=== PATIENT | male | born 1960 | race Caucasian/White ===

== ENCOUNTER 2018-11-29 08:16 | Inpatient (IN) | payer OTHER ==
[~2018-11-29] VITALS: Ht 160 cm; Wt 68.9 kg
[2018-11-29 08:50] VITALS: BP 131/99
--- NOTE | 2018-11-29 09:08 | NUR ---
pt ambulated to er bed 11
--- NOTE | 2018-11-29 09:28 | NUR ---
58 YO M BIB SELF W/ C/O BLOODY STOOL X 3 DAYS, WITH HEMATEMESIS X 2 EPISODES TODAY. PT DENIES ANY PAIN, BUT STATES THAT HE HAS INTERMITTENT PERIODS OF FEELING FEVERISH AND DIZZY. DENIES AT THIS TIME. AFEBRILE. STATES HE HAS HAD A PRODUCTIVE COUGH X 2 DAYS W/ CONGESTION. ABD SOFT, NON-TENDER. REPORTS HE HAS BEEN ABLE TO KEEP WATER DOWN. PT AAOX4, GCS 15.
--- NOTE | 2018-11-29 09:38 | NUR ---
PT REPORTS HX OF HEP C
[2018-11-29] MEDS ORDERED: MULTIVITAMIN-12 10 ML, THIAMINE 100 MG, MAGNESIUM SULFATE 50% 2,000 MG, FOLIC ACID 5 MG... IV ONE ×5 (10:21)
[2018-11-29] MEDS ORDERED: NACL 0.9% 1,000 ML IV SCH (10:21)
[2018-11-29] MEDS ORDERED: FAMOTIDINE 20 MG/2 ML VIAL IVP ONE (10:25)
[2018-11-29] MEDS ORDERED: PANTOPRAZOLE 40 MG INJ VIAL IVP ONE (10:25)
[2018-11-29] MEDS ORDERED: PROMETHAZINE 25 MG/ML VIAL IM ONE (10:25)
--- NOTE | 2018-11-29 11:15 | NUR ---
PT TAKEN TO CT VIA MYLENE
[2018-11-29 11:16] LABS: BASOPHILS % (AUTO) 0.5 % (0.0-2.0); EOSINOPHILS % (AUTO) 0.3 % (0.0-4.0); HEMATOCRIT 25.5 % (36-52); HEMOGLOBIN 8.6 g/dL (12.0-18.0); LYMPHOCYTES # (AUTO) 1.2 K/uL (2.0-11.5); LYMPHOCYTES % (AUTO) 13.7 % (20.5-51.1); MEAN CORPUSCULAR HEMOGLOBIN 35 pg (27-31); MEAN CORPUSCULAR HGB CONC 34 g/dL (33-37); MEAN CORPUSCULAR VOLUME 103.3 fL (80-94); MONOCYTES # (AUTO) 0.6 K/uL (0.8-1.0); MONOCYTES % (AUTO) 7.2 % (1.7-9.3); NEUTROPHILS # (AUTO) 6.8 K/uL (1.8-7.7); NEUTROPHILS % (AUTO) 78.3 % (42.2-75.2); PLATELET COUNT (AUTO) 246 K/uL (140-450); RED BLOOD CELL COUNT(AUTO) 2.47 MIL/uL (4.20-6.10); RED CELL DISTRIBUTION WIDTH 12.2 % (11.6-13.7); WHITE BLOOD COUNT (AUTO) 8.7 K/uL (4.8-10.8)
--- NOTE | 2018-11-29 11:29 | NUR ---
PT BACK FROM CT
[2018-11-29 11:35] LABS: BARBITURATE, URINE NEG. ng/ml (NEG <=200); BENZODIAZEPINE, URINE NEG. ng/mL (NEG <=200); CANNABINOID, URINE POS. ng/mL (NEG <=50); COCAINE, URINE NEG. ng/mL (NEG <=300); OPIATE, URINE NEG. ng/mL (NEG <=2000); PHENCYCLIDINE SCREEN,URINE NEG. ng/mL (NEG <=25)
[2018-11-29 11:36] LABS: BILIRUBIN,URINE NEGATIVE (NEGATIVE); BLOOD, URINE 1+ (NEGATIVE); COLOR,URINE YELLOW (YELLOW); LEUKOCYTE ESTERASE ,URINE 3+ (NEGATIVE); NITRITE, URINE NEGATIVE (NEGATIVE); UGLUCOSE NEGATIVE (NEGATIVE)
[2018-11-29 11:48] LABS: APPEARANCE,URINE SLIGHTLY HAZY (CLEAR)
[2018-11-29 11:49] LABS: RBC,URINE 0-5 (RARE) /HPF (0-5); WBC,URINE 6-15 (FEW) /HPF (0-5)
[2018-11-29 12:00] LABS: ALBUMIN 3.5 g/dL (3.4-5.0); AMYLASE 51 U/L (25-115); ASPARTATE AMINOTRANSFERASE 92 U/L (15-37); LIPASE 174 U/L (73-393); TOTAL BILIRUBIN 0.5 mg/dL (0.0-1.0)
[2018-11-29 12:08] LABS: ANION GAP 14.1 (8-16); CARBON DIOXIDE 24.9 mmol/L (21-32); CHLORIDE 102 mmol/L (98-107); GFR ARICAN-AMERICAN 99 mL/min (>90); GLUCOSE 109 mg/dL (74-106); SODIUM SERUM 137 mmol/L (136-145); UREA NITROGEN, BLOOD 31 mg/dL (7-18)
[2018-11-29] MEDS ORDERED: HYDROcodone/APAP 7.5/325 MG 1 TAB PO PRN (12:15)
[2018-11-29] MEDS ORDERED: DOCUSATE SODIUM 100 MG GELCAP PO PRN (12:15)
[2018-11-29] MEDS: NACL 0.9% 1,000 ML IV SCH (12:15)
[2018-11-29] MEDS ORDERED: ONDANSETRON 4 MG/2 ML VIAL IM/IVP PRN (12:15)
[2018-11-29 12:20] LABS: PROTHROMBIN TIME 9.9 secs (10.8-13.4)
[2018-11-29 12:43] LABS: PHOSPHORUS 2.3 mg/dL (2.5-4.9); THYROID STIMULATING HORMONE 1.86 uIU/mL (0.34-3.74)
[2018-11-29] MEDS ORDERED: LORazepam 2 MG/ML VIAL IVP PRN (13:50)
[2018-11-29] MEDS ORDERED: SODIUM PHOS / POTASSIUM PHOS 1 PKT PDR PO SCH (14:30)
--- NOTE | 2018-11-29 14:30 | NUR ---
Admitted from ER , with chief complaint of VOMITTING BLOOD , 58 y/o ,Male, Appropriate, AAOX4, NO S/S OF ACUTE DISTRESS. PT DENIES PAIN. IV SITE PATENT AND INTACT. PT oriented to call light, bed, phone,television, bathroom, smoking policy, visiting hours, procedures, ID bracelet on. Belongings list checked. CALL LIGHT WITHIN REACH. SAFETY MEASURES ENSURED. WILL CONTINUE TO MONITOR.
[2018-11-29 14:50] VITALS: BP 132/88
[2018-11-29] MEDS ORDERED: LORazepam 0.5 MG TAB PO SCH (15:00)
[2018-11-29 15:58] VITALS: BP 103/62
--- NOTE | 2018-11-29 19:16 | NUR ---
ENDORSED PLAN OF CARE TO NIGHT RN. PT REMAINS STABLE.
--- NOTE | 2018-11-29 19:20 | NUR ---
RECEIVED ENDORSEMENT FROM AM SHIFT RN. PATIENT A/Ox4, ABLE TO MAKE NEEDS KNOWN. NO SOB OR DISTRESS NOTED. INTRODUCED SELF TO PATIENT, UPDATED BOARD. PATIENT AMBULATORY. IV ON RIGHT WRIST, 20 GAUGE, INTACT, NO S/SX OF REDNESS, SWELLING OR INFECTION NOTED. PATIENT ON TELE MONITORING. BED IN THE LOWEST POSITION ,CALL LIGHT WITHIN REACH. INITIAL ASSESSMENT DONE. WILL CONTINUE TO MONITOR.
[2018-11-29 20:00] VITALS: BP 97/61
--- NOTE | 2018-11-29 21:05 | NUR ---
FREQUENT CHECKS DONE, PATIENT IS WATCHING TV WITH FRIEND. NO DISTRESS NOTED.
[2018-11-29] MEDS: LORazepam 1 MG TAB PO SCH (21:34)
[2018-11-29] MEDS: ACETAMINOPHEN 325 MG TAB PO PRN (21:38)
--- NOTE | 2018-11-29 23:55 | NUR ---
CHECKS MADE, VITALS TAKEN. NO DISTRESS NOTED.
[2018-11-30] VITALS: BP 111/45
--- NOTE | 2018-11-30 02:05 | NUR ---
PATIENT ASLEEP, EYES CLOSED, VISIBLE CHEST RISE AND FALL NOTED.
[2018-11-30] MEDS: NACL 0.9% 1,000 ML IV SCH ×2 (02:14→17:07)
[2018-11-30 04:00] VITALS: BP 106/64
[2018-11-30] MEDS: LORazepam 1 MG TAB PO SCH ×3 (04:29→20:27)
--- NOTE | 2018-11-30 04:30 | NUR ---
FREQUENT CHECKS MADE, EYES CLOSED, VISIBLE CHEST RISE AND FALL NOTED.
[2018-11-30] MEDS: ACETAMINOPHEN 325 MG TAB PO PRN ×2 (05:31→13:12)
--- NOTE | 2018-11-30 07:10 | NUR ---
RECEIVED PT REPORT FROM DIRECTOR FOOD AND BEVERAGE NURSE AT BEDSIDE. PT IS AWAKE AND ALERT, NO S/S OF ACUTE DISTRESS, SOB, OR C/O PAIN. PT IS ON ROOM AIR, SKIN IS INTACT. IV SITE NOTED ON THE R WRIST, 20 G, INFUSING NS 70 ML/HR. PT IS AMBULATORY AND ABLE TO MAKE NEEDS KNOWN. CALL LIGHT WITHIN REACH. WILL CONTINUE TO MONITOR.
--- NOTE | 2018-11-30 07:10 | NUR ---
ENDORSED PATIENT TO AM SHIFT RN. PATIENT IN STABLE CONDITION.
[2018-11-30 08:00] VITALS: BP 109/73
[2018-11-30 08:11] LABS: BASOPHILS % (AUTO) 0.7 % (0.0-2.0); EOSINOPHILS # (AUTO) 0.1 K/uL (0-0.4); EOSINOPHILS % (AUTO) 2.2 % (0.0-4.0); HEMATOCRIT 21.3 % (36-52); HEMOGLOBIN 7.2 g/dL (12.0-18.0); LYMPHOCYTES # (AUTO) 0.7 K/uL (2.0-11.5); LYMPHOCYTES % (AUTO) 20.7 % (20.5-51.1); MEAN CORPUSCULAR HEMOGLOBIN 36 pg (27-31); MEAN CORPUSCULAR HGB CONC 34 g/dL (33-37); MEAN CORPUSCULAR VOLUME 105.3 fL (80-94); MONOCYTES # (AUTO) 0.3 K/uL (0.8-1.0); MONOCYTES % (AUTO) 8.1 % (1.7-9.3); NEUTROPHILS # (AUTO) 2.3 K/uL (1.8-7.7); NEUTROPHILS % (AUTO) 68.3 % (42.2-75.2); PLATELET COUNT (AUTO) 214 K/uL (140-450); RED BLOOD CELL COUNT(AUTO) 2.02 MIL/uL (4.20-6.10); RED CELL DISTRIBUTION WIDTH 12.3 % (11.6-13.7); WHITE BLOOD COUNT (AUTO) 3.3 K/uL (4.8-10.8)
[2018-11-30] MEDS: PANTOPRAZOLE 40 MG INJ VIAL IVP SCH (08:49)
[2018-11-30] MEDS: FOLIC ACID 1 MG TAB PO SCH (08:50)
[2018-11-30] MEDS: THIAMINE 100 MG TAB PO SCH (08:50)
[2018-11-30] MEDS: MULTIVITAMIN 1 TAB PO SCH (08:50)
--- NOTE | 2018-11-30 09:10 | NUR ---
OBTAINED CONSENT FROM PT FOR EGD PROCEDURE TODAY. DR MONTALVO CALLED AND NOTIFIED THAT HE WILL BE DOING THE PROCEDURE AT 10:30 AM. ALSO COLLECTED STOOL FOR OCCULT BLOOD TEST, SAMPLE SENT TO LAB.
--- NOTE | 2018-11-30 09:22 | NUR ---
PATIENT HAS BEEN SCREENED AND CATEGORIZED MODERATE NUTRITION RISK. PATIENT WILL BE SEEN WITHIN 3-5 DAYS OF ADMISSION. 12/02/18-10/03/[address]
[2018-11-30 09:47] LABS: ANION GAP 9.8 (8-16); CARBON DIOXIDE 26.4 mmol/L (21-32); POTASSIUM 4.2 mmol/L (3.5-5.1)
[2018-11-30 09:48] LABS: CREATININE 0.8 mg/dL (0.7-1.3)
[2018-11-30] MEDS ORDERED: fentaNYL 0.05 MG/ML VIAL ONE (10:18)
[2018-11-30] MEDS ORDERED: MIDAZOLAM 2 MG/2 ML VIAL ONE (10:19)
[2018-11-30] MEDS ORDERED: diphenhydrAMINE 50 MG/ML VIAL ONE (10:19)
--- NOTE | 2018-11-30 10:30 | NUR ---
PT GOING OFF THE FLOOR FOR EGD AT THIS TIME
[2018-11-30] MEDS: MIDAZOLAM 2 MG/2 ML VIAL IVP ONE ×2 (11:06→11:52)
[2018-11-30] MEDS: fentaNYL 0.05 MG/ML VIAL IVP ONE ×2 (11:07→11:52)
[2018-11-30] MEDS: diphenhydrAMINE 50 MG/ML VIAL IVP ONE ×2 (11:10→11:52)
--- NOTE | 2018-11-30 11:45 | NUR ---
PT BACK FROM EGD. VITAL SIGNS ARE STABLE. CONFIRMED PT'S DIET WITH DR MONTALVO, PT WILL BE PLACED ON A REGULAR DIET.
[2018-11-30 12:00] VITALS: BP 116/63
--- NOTE | 2018-11-30 12:15 | NUR ---
PT'S FRIEND DROPPED OFF A SOUP AND A PAPER BAG WITH SOME CANNABIS-BASED PRODUCT AND A CONTAINER OF WHITE LONG PILLS. CONSULTED THE CHARGE NURSE AND MD REGARDING WHAT TO DO WITH THEM. PER PHARMACY, THEY CANNOT HOLD ON TO IT. DR ISAAC SAYS OK TO KEEP THEM AT PT'S BEDSIDE LONG PT IS INSTRUCTED NOT TO TAKE ANY OF IT. PLACED AT PT'S BEDSIDE AT THIS TIME, WILL FOLLOW UP WITH SECURITY TO SEE IF THEY CAN HOLD ON TO IT.
--- NOTE | 2018-11-30 14:20 | NUR ---
PT ASKED FOR A SANDWICH AND JELLO. STATES THAT HE IS STILL VERY HUNGRY FROM NOT EATING FOR SEVERAL DAYS. WILL BRING PT A SANDWICH FROM [employer]. HE IS NOW ON A REGULAR DIET.
[2018-11-30 16:00] VITALS: BP 100/64
[2018-11-30 16:01] LABS: FERRITIN 236 ng/mL (30-400); FOLIC ACID > 20.00 ng/mL (>3.0); HEPATITIS A ANTIBODY IGM Negative (Negative); HEPATITIS B CORE AB TOTAL Negative (Negative); HEPATITIS B SURFACE ANTIBODY Reactive (.); HEPATITIS B SURFACE ANTIGEN Negative (Negative); TRANSFERRIN 254 mg/dL (200-370)
[2018-11-30] MEDS: AMOXICILLIN 500 MG CAP PO SCH (17:15)
--- NOTE | 2018-11-30 17:57 | NUR ---
GIRLFRIEND VISITING PT AT BEDSIDE AT THIS TIME.
--- NOTE | 2018-11-30 18:30 | NUR ---
PT AMBULATING IN THE HALLWAYS WITH HIS GIRLFRIEND.
--- NOTE | 2018-11-30 19:15 | NUR ---
ENDORSED PT TO PAYROLL AUDITOR IN STABLE CONDITION.
--- NOTE | 2018-11-30 19:16 | NUR ---
RECEIVED PT AWAKE ON BED, AAOX4, DENIES ANY PAIN, VITAL SIGNS STABLE, IVF INFUSING WELL, PLAN OF CARE DISCUSSED, SAFETY MEASURES IN PLACE, CALL LIGHT WITHIN REACH.
[2018-11-30 20:00] VITALS: BP 92/67
[2018-11-30] MEDS: CLARITHROMYCIN 500 MG TAB PO SCH (20:27)
--- NOTE | 2018-11-30 21:40 | NUR ---
PT SLEEPING, NO SIGNS OF DISTRESS, MONITORED CLOSELY.
[2018-12-01] VITALS: BP 92/53
--- NOTE | 2018-12-01 | NUR ---
PT SLEEPING, EASILY AROUSABLE, VITAL SIGNS TAKEN, BP LOW BUT STABLE, DENIES PAIN, IVF INFUSING WELL, CONTINUE TO MONITOR CLOSELY.
--- NOTE | 2018-12-01 03:40 | NUR ---
PT SLEEPING, EASILY AROUSABLE, VITAL SIGNS STABLE, DENIES PAIN, PT ASKING FOR HIS NEXT ATIVAN, MADE AWARE OF NEXT DUE TIME, PT WENT BACK TO SLEEP, MONITORED CLOSELY.
[2018-12-01 04:00] VITALS: BP 101/61
[2018-12-01] MEDS: LORazepam 1 MG TAB PO SCH (04:21)
--- NOTE | 2018-12-01 07:04 | NUR ---
PT IN THE BATHROOM, NO DISTRESS NOTED, REPORT GIVEN TO ODILON HERBERT FOR CONTINUITY OF CARE.
--- NOTE | 2018-12-01 07:15 | NUR ---
RECEIVED PT REPORT FROM RANCH HAND LIVESTOCK NURSE AT BEDSIDE. PT IS AWAKE AND ALERT, NO S/S OF ACUTE DISTRESS OR SOB NOTED. PT NO C/O PAIN AT THIS TIME. IV SITE ON THE R WRIST 20 GAUGE IS PATENT AND INTACT, INFUSING NS 70 ML/HR. PT IS AMBULATORY. PT ON ROOM AIR, SKIN INTACT. CALL LIGHT WITHIN REACH, WILL CONTINUE TO MONITOR.
[2018-12-01 07:51] VITALS: BP 111/81
[2018-12-01] MEDS: NACL 0.9% 1,000 ML IV SCH (07:58)
[2018-12-01 08:04] LABS: BASOPHILS % (AUTO) 0.4 % (0.0-2.0)
[2018-12-01 08:20] LABS: EOSINOPHILS # (AUTO) 0.1 K/uL (0-0.4); EOSINOPHILS % (AUTO) 1.7 % (0.0-4.0); HEMATOCRIT 22.3 % (36-52); HEMOGLOBIN 7.4 g/dL (12.0-18.0); MEAN CORPUSCULAR HEMOGLOBIN 36 pg (27-31); MEAN CORPUSCULAR HGB CONC 33 g/dL (33-37); MONOCYTES # (AUTO) 0.4 K/uL (0.8-1.0); MONOCYTES % (AUTO) 6.7 % (1.7-9.3); NEUTROPHILS # (AUTO) 4.2 K/uL (1.8-7.7); NEUTROPHILS % (AUTO) 73.2 % (42.2-75.2); PLATELET COUNT (AUTO) 234 K/uL (140-450); RED BLOOD CELL COUNT(AUTO) 2.08 MIL/uL (4.20-6.10); RED CELL DISTRIBUTION WIDTH 12.7 % (11.6-13.7); WHITE BLOOD COUNT (AUTO) 5.7 K/uL (4.8-10.8)
[2018-12-01] MEDS: PANTOPRAZOLE 40 MG INJ VIAL IVP SCH (08:41)
[2018-12-01] MEDS: AMOXICILLIN 500 MG CAP PO SCH ×2 (08:41→12:47)
[2018-12-01] MEDS: FOLIC ACID 1 MG TAB PO SCH (08:42)
[2018-12-01] MEDS: CLARITHROMYCIN 500 MG TAB PO SCH (08:42)
[2018-12-01] MEDS: MULTIVITAMIN 1 TAB PO SCH (08:42)
[2018-12-01] MEDS: THIAMINE 100 MG TAB PO SCH (08:43)
[2018-12-01 08:45] LABS: ANION GAP 7.8 (8-16); CARBON DIOXIDE 27.8 mmol/L (21-32); CREATININE 0.8 mg/dL (0.7-1.3); POTASSIUM 4.6 mmol/L (3.5-5.1)
[2018-12-01] MEDS ORDERED: MULT-405 PO (11:35)
[2018-12-01] MEDS ORDERED: THIA-34 PO (11:35)
[2018-12-01] MEDS ORDERED: AMOX500C25 PO (11:35)
[2018-12-01] MEDS ORDERED: FOLI1TAB90 PO (11:35)
[2018-12-01] MEDS ORDERED: OMEP20TC12 PO (11:35)
[2018-12-01] MEDS ORDERED: ACET-9234 PO (11:35)
[2018-12-01] MEDS ORDERED: CLAR500T PO (11:35)
[2018-12-01 12:00] VITALS: BP 126/77
--- NOTE | 2018-12-01 13:00 | NUR ---
PT HAS DISCHARGED. PT WAS GIVEN DC INSTRUCTIONS AND PRESCRIPTIONS, TO WHICH HE VERBALIZED UNDERSTANDING. DC SIGNATURES OBTAINED. IV SITE AND WRIST BANDS REMOVED. PT REFUSED A FLU VACCINE. PT LEFT WITH ALL OF HIS BELONGINGS IN STABLE CONDITION, VIA UBER.
[2018-12-03 06:30] LABS: FOLIC ACID > 20.00 ng/mL (>3.0)
--- NOTE | 2018-12-03 08:24 | NUR ---
late entry. Confirmed with RN that 1000 ml IV bous 0.9 NS completed at 1145.
--- NOTE | 2018-12-03 08:27 | NUR ---
late entry. MVI and thiamine,mag, folic acid was mixed with 1000 ml 0.9NS IV and the end time from the ED was on transfer to the floor. ED end time was 1400
== END 2018-12-01 13:00 | disposition home or self-care (01) | DRG 379 ==
LOC: MED 08:16 → MMU 13:28 → MTU 16:50
PROVIDERS: ADMIT General Practice; ATTEND General Practice
PROC: 0DB68ZX Excision of Stomach, Via Natural or Artificial Opening Endoscopic, Diagnostic (ICD-10-PCS; principal; 2018-11-30 10:30)
DX: K26.0 Acute duodenal ulcer with hemorrhage (principal); D50.0 Iron deficiency anemia secondary to blood loss (chronic); J45.909 Unspecified asthma, uncomplicated; E83.39 Other disorders of phosphorus metabolism; K76.0 Fatty (change of) liver, not elsewhere classified; F12.90 Cannabis use, unspecified, uncomplicated; R91.1 Solitary pulmonary nodule; N20.0 Calculus of kidney; N28.1 Cyst of kidney, acquired; Y90.0 Blood alcohol level of less than 20 mg/100 ml; F10.20 Alcohol dependence, uncomplicated; D72.819 Decreased white blood cell count, unspecified; K44.9 Diaphragmatic hernia without obstruction or gangrene; K29.80 Duodenitis without bleeding; K25.9 Gastric ulcer, unspecified as acute or chronic, without hemorrhage or perforation; K29.60 Other gastritis without bleeding; B19.20 Unspecified viral hepatitis C without hepatic coma; B96.81 Helicobacter pylori [H. pylori] as the cause of diseases classified elsewhere; Z98.1 Arthrodesis status; Z87.81 Personal history of (healed) traumatic fracture; Z71.51 Drug abuse counseling and surveillance of drug abuser
CPT/HCPCS: 36415; 71045; 80048; 80053; 80305; 81001; 82150; 82272; 82550; 82607; 82728; 82746; 83036; 83540; 83605; 83690; 83735; 83880; 84100; 84436; 84443; 84479; 84484; 85025; 85045; 85610; 85730; 86677; 86704; 86706; 86708; 86709; 86803; 86886; 86900; 86901; 87081; 87086; 87186; 87340; 93005; 96372; 96374; 96375; 99285; A9153; C9113; G0482; J1200; J2250; J2550; J3010; J3411; J3475; J3490; J7030; Q0092